=== PATIENT | female | born 1975 | race Caucasian/White ===

== ENCOUNTER 2023-06-11 19:56 | Outpatient (OUT) | payer BC, SELFPAY | END 2023-06-11 19:57 | disposition home or self-care (01) | LOC: SLEEP 19:56 | PROVIDERS: PCP Internal Medicine; Visit Provider Internal Medicine | DX: G47.33 Obstructive sleep apnea (adult) (pediatric) (principal); G47.11 Idiopathic hypersomnia with long sleep time; G47.10 Hypersomnia, unspecified | CPT/HCPCS: 95810 ==

== ENCOUNTER 2023-07-02 20:56 | Outpatient (OUT) | payer BC, SELFPAY | END 2023-07-02 20:57 | disposition home or self-care (01) | LOC: SLEEP 20:56 | PROVIDERS: PCP Internal Medicine; Visit Provider Internal Medicine | DX: G47.33 Obstructive sleep apnea (adult) (pediatric) (principal); G47.11 Idiopathic hypersomnia with long sleep time; F51.01 Primary insomnia | CPT/HCPCS: 95811 ==